=== PATIENT | male | born 1955 | race Caucasian/White ===

== ENCOUNTER 2021-05-27 18:57 | Inpatient (IN) | payer MEDICARE, MEDICAID ==
[~2021-05-27] VITALS: Ht 188 cm; Wt 102.0 kg
[2021-05-27 21:24] LABS: BASOPHILS % (AUTO) 0.4 % (0-1); EOSINOPHILS % (AUTO) 0.5 % (0-6); HEMATOCRIT 40.1 % (42.0-52.0); HEMOGLOBIN 13.4 g/dl (14.0-17.9); LYMPHOCYTES # (AUTO) 1.3 X10'3 (1.1-4.8); LYMPHOCYTES % (AUTO) 24.9 % (21-51); MEAN CORPUSCULAR HEMOGLOBIN 34.7 PG (27.0-31.0); MEAN CORPUSCULAR HGB CONC 33.5 g/dL (33.0-36.5); MEAN CORPUSCULAR VOLUME 103.4 FL (78-98); MEAN PLATELET VOLUME 8.8 FL (7.4-10.4); MONOCYTES # (AUTO) 0.7 X10'3 (0-0.9); MONOCYTES % (AUTO) 14.5 % (2-12); NEUTROPHILS % (AUTO) 59.7 % (42-75); PLATELET COUNT 131 X10'3 (140-440); RED BLOOD COUNT 3.88 X10'6 (4.70-6.10); RED CELL DISTRIBUTION WIDTH 13.4 % (11.5-14.5)
--- NOTE | 2021-05-27 21:36 | NUR ---
correction admin Evelyne Fulton called to let staff know she could contact her at [phone] or [phone]
[2021-05-27 21:47] LABS: ALANINE AMINOTRANSFERASE 26 U/L (12-78); ALBUMIN/GLOBULIN RATIO 0.9 (1.1-1.5); ALKALINE PHOSPHATASE 113 IU/L (46-116); ANION GAP 9 (8-16); ASPARTATE AMINO TRANSFERASE 15 U/L (10-37); BILIRUBIN,TOTAL 0.1 MG/DL (0.1-1.0); BLOOD UREA NITROGEN 22 MG/DL (7-18); BUN/CREATININE RATIO 20.4 (5.4-32.0); CHLORIDE 104 MMOL/L (99-107); CREATININE 1.08 MG/DL (0.60-1.10); GLUCOSE 274 MG/DL (70-104); POTASSIUM 4.3 MMOL/L (3.5-5.1); SODIUM 139 MMOL/L (135-145); TOTAL CARBON DIOXIDE 26.2 MMOL/L (24-32); TOTAL PROTEIN 6.3 G/DL (6.4-8.2); eGFR 69 ML/MIN
[2021-05-27] MEDS ORDERED: normal saline 1000ML IV soln IV ONE (22:20)
[2021-05-27 23:07] LABS: BASOPHILS % (AUTO) 0.3 % (0-1); EOSINOPHILS % (AUTO) 0.8 % (0-6); HEMATOCRIT 40.7 % (42.0-52.0); HEMOGLOBIN 13.6 g/dl (14.0-17.9); LYMPHOCYTES # (AUTO) 1.4 X10'3 (1.1-4.8); LYMPHOCYTES % (AUTO) 30.5 % (21-51); MEAN CORPUSCULAR HEMOGLOBIN 34.6 PG (27.0-31.0); MEAN CORPUSCULAR HGB CONC 33.4 g/dL (33.0-36.5); MEAN CORPUSCULAR VOLUME 103.6 FL (78-98); MEAN PLATELET VOLUME 8.7 FL (7.4-10.4); MONOCYTES # (AUTO) 0.6 X10'3 (0-0.9); MONOCYTES % (AUTO) 14.1 % (2-12); NEUTROPHILS # (AUTO) 2.5 X10'3 (1.8-7.7); NEUTROPHILS % (AUTO) 54.3 % (42-75); PLATELET COUNT 131 X10'3 (140-440); RED BLOOD COUNT 3.93 X10'6 (4.70-6.10); RED CELL DISTRIBUTION WIDTH 13.7 % (11.5-14.5); WHITE BLOOD COUNT 4.6 X10'3 (4.5-11.0)
[2021-05-28] MEDS: MESSAGE TO NURSING PO SCH
[2021-05-28 00:02] LABS: UA COLLECTION TYPE STRAIGHT CATH
[2021-05-28 00:03] LABS: COLOR,URINE YELLOW (Yellow)
[2021-05-28 00:04] LABS: CLARITY,URINE SLIGHTLY CLOUDY (Clear); GLUCOSE, URINE >=1000 mg/dl (Neg); KETONES,URINE TRACE mg/dl (Neg); LEUKOCYTE ESTERASE ,URINE NEGATIVE (Neg); NITRITES, URINE NEGATIVE (Neg); OCCULT BLOOD,URINE TRACE-LYSED (Neg); PROTEIN,URINE TRACE mg/dl (Neg); UROBILINOGEN,URINE 0.2 E.U/dL (0.2-1.0)
[2021-05-28 00:05] LABS: AMORPHOUS URATES 1+; BACTERIA,URINE FEW /HPF (Neg); COARSE GRANULAR CAST 0-3 /LPF (NEGATIVE); HYALINE CASTS 0-3 /LPF (NEGATIVE); RBC,URINE 0-2 /HPF (0-2); SQUAMOUS EPITHELIAL CELL,UR FEW /LPF (FEW); WBC,URINE NONE SEEN /HPF (0-4)
[2021-05-28] MEDS ORDERED: iohexol 350MG/ML 100ml bottle IV ONE (00:51)
[2021-05-28] MEDS ORDERED: magnesium 4gm in 100ml NS 100 ML IV PRN (01:30)
[2021-05-28] MEDS ORDERED: potassium Cl 20 mEq SR tablet PO PRN ×2 (01:30)
[2021-05-28] MEDS ORDERED: potassium Cl 40MEQ/1/2NS 520ml 520 ML IV PRN ×2 (01:30)
[2021-05-28] MEDS ORDERED: magnesium hydroxide 30ml (MOM) UD suspension PO PRN (01:30)
[2021-05-28] MEDS ORDERED: magnesium 2GM in 50ml NS 50 ML IV PRN (01:30)
[2021-05-28] MEDS ORDERED: acetaminophen 325mg tablet PO PRN (01:30)
[2021-05-28] MEDS ORDERED: mag hydrox/Alum hydrox/simeth 30ml oral suspension PO PRN (01:30)
[2021-05-28] MEDS ORDERED: magnesium Cl slow-release 64mg tablet PO PRN (01:30)
[2021-05-28] MEDS ORDERED: HYDROcodone/acetaminophen 5mg/325mg tablet PO PRN (01:30)
[2021-05-28] MEDS ORDERED: morphine 2 MG/ML inj. syringe IV PRN (01:30)
[2021-05-28] MEDS ORDERED: ondansetron/PF 4mg/2ml inj IV PRN (01:30)
--- NOTE | 2021-05-28 01:45 | NUR ---
patient is very poor historian, called [facility] with number provided in noted and there was no answer. Pharmacy will call again in the morning to hopefully get home meds list.
[2021-05-28] MEDS: normal saline 1000ml 1,000 ML IV SCH ×2 (02:00→19:00)
[2021-05-28] MEDS ORDERED: dextrose 50%-water 50ml dispensing syringe IV PRN ×2 (02:20)
[2021-05-28] MEDS ORDERED: glucagon, human recombinant 1mg kit SUBCUT PRN (02:20)
[2021-05-28] MEDS ORDERED: MESSAGE TO PHARMACY PO ONE (02:20)
[2021-05-28] MEDS ORDERED: dextrose ORAL solution 15 GM/59 ML bottle PO PRN ×2 (02:20)
[2021-05-28 02:57] LABS: HEMOGLOBIN A1C 7.3 % (4.5-6.2)
--- NOTE | 2021-05-28 07:49 | NUR ---
PAGER ID: [phone] MESSAGE: [phone] Ronnie canas admit to floor NPO? Is there a reason? he is hungry [phone]
[2021-05-28 07:50] VITALS: BP 124/81
[2021-05-28] MEDS: K and/or MAG REPLACEMENT MC SCH ×2 (08:00→20:00)
[2021-05-28] MEDS: ciprofloxacin lact 400MG/200ML 200 ML IV SCH ×2 (08:00→23:06)
[2021-05-28] MEDS ORDERED: SITA100T15 PO (08:10)
[2021-05-28] MEDS ORDERED: METF-950 PO (08:10)
[2021-05-28] MEDS ORDERED: LEVE10006 PO (08:10)
[2021-05-28] MEDS ORDERED: [UNRECOGNIZED DRUG - CODE] PO (08:10)
[2021-05-28] MEDS ORDERED: PHEN100C12 PO (08:10)
[2021-05-28] MEDS ORDERED: METO-395 PO (08:10)
[2021-05-28] MEDS ORDERED: GABA300C PO (08:18)
[2021-05-28] MEDS ORDERED: EPIN0.3A3 IJ (08:20)
[2021-05-28] MEDS ORDERED: CHOL100017 PO (08:20)
[2021-05-28 10:00] VITALS: BP 139/90
[2021-05-28] MEDS: metroNIDAZOLE-Flagyl 500mg/NS 100 ML IV SCH ×2 (10:39→19:32)
[2021-05-28] MEDS: docusate sod 100mg capsule PO SCH ×2 (10:40→21:36)
[2021-05-28] MEDS: heparin, porcine 5000 units/ml vial SQ SCH ×2 (10:40→19:31)
[2021-05-28] MEDS: dexamethasone 4mg/ml inj IV SCH ×2 (10:40→19:32)
[2021-05-28] MEDS: insulin Lispro (HumaLOG) vial - multi-dose SQ SCH ×2 (13:49→19:39)
[2021-05-28 14:00] VITALS: BP 130/79
[2021-05-28 18:00] VITALS: BP 135/94
--- NOTE | 2021-05-28 18:50 | NUR ---
Dr Osbaldo adhikari, patient had seizure while up in chair. Returned to bed by nursing. Home meds not ordered, possibly secondary to anticipated discharge that was postponed.
[2021-05-28] MEDS ORDERED: temazepam 15mg capsule PO PRN (21:00)
[2021-05-28] MEDS: insulin glargine (Lantus) pen - multi-dose SQ SCH (21:31)
[2021-05-28] MEDS: gabapentin 300mg capsule PO SCH (21:36)
[2021-05-28] MEDS: phenytoin sod ER 100mg capsule PO SCH (21:36)
[2021-05-28] MEDS: levetiracetam 250mg tablet PO SCH (21:36)
[2021-05-28 22:00] VITALS: BP 122/86
[2021-05-29] MEDS: MESSAGE TO NURSING PO SCH
[2021-05-29 02:00] VITALS: BP 115/71
[2021-05-29] MEDS: metroNIDAZOLE-Flagyl 500mg/NS 100 ML IV SCH ×4 (03:35→23:53)
[2021-05-29] MEDS: normal saline 1000ml 1,000 ML IV SCH ×2 (06:06→16:57)
--- NOTE | 2021-05-29 06:38 | NUR ---
Patient in room ORTHO 4008. I have received report from SONY Belcher and had the opportunity to ask questions and assume patient care.
[2021-05-29 06:53] VITALS: BP 116/67
[2021-05-29] MEDS: metoprolol succinate 25mg (24-HOUR) SR. Tablet PO SCH (07:15)
[2021-05-29] MEDS: cholecalciferol (vitamin D3) 1,000 unit (25mcg) tablet PO SCH (07:16)
[2021-05-29] MEDS: dexamethasone 4mg/ml inj IV SCH ×2 (07:16→20:16)
[2021-05-29] MEDS: levetiracetam 250mg tablet PO SCH ×2 (07:16→20:15)
[2021-05-29] MEDS: heparin, porcine 5000 units/ml vial SQ SCH ×2 (07:17→20:16)
[2021-05-29] MEDS: gabapentin 300mg capsule PO SCH ×2 (07:17→20:15)
[2021-05-29] MEDS: docusate sod 100mg capsule PO SCH ×3 (07:17→22:41)
[2021-05-29] MEDS ORDERED: docusate sod 100mg capsule PO SCH (08:00)
[2021-05-29] MEDS: K and/or MAG REPLACEMENT MC SCH ×2 (08:00→20:00)
[2021-05-29 08:38] LABS: BASOPHILS % (AUTO) 0.3 % (0-1); EOSINOPHILS % (AUTO) 0 % (0-6); HEMATOCRIT 38.5 % (42.0-52.0); HEMOGLOBIN 13.2 g/dl (14.0-17.9); LYMPHOCYTES # (AUTO) 0.6 X10'3 (1.1-4.8); MEAN CORPUSCULAR HEMOGLOBIN 34.8 PG (27.0-31.0); MEAN CORPUSCULAR HGB CONC 34.2 g/dL (33.0-36.5); MEAN CORPUSCULAR VOLUME 101.7 FL (78-98); MEAN PLATELET VOLUME 8.9 FL (7.4-10.4); MONOCYTES # (AUTO) 0.4 X10'3 (0-0.9); NEUTROPHILS # (AUTO) 2.6 X10'3 (1.8-7.7); NEUTROPHILS % (AUTO) 71.7 % (42-75); PLATELET COUNT 122 X10'3 (140-440); RED BLOOD COUNT 3.78 X10'6 (4.70-6.10); RED CELL DISTRIBUTION WIDTH 13.2 % (11.5-14.5); WHITE BLOOD COUNT 3.6 X10'3 (4.5-11.0)
[2021-05-29 08:53] LABS: ALANINE AMINOTRANSFERASE 46 U/L (12-78); ALBUMIN 2.8 G/DL (3.4-5.0); ALBUMIN/GLOBULIN RATIO 0.8 (1.1-1.5); ALKALINE PHOSPHATASE 105 IU/L (46-116); ANION GAP 11 (8-16); ASPARTATE AMINO TRANSFERASE 37 U/L (10-37); BILIRUBIN,TOTAL 0.3 MG/DL (0.1-1.0); BLOOD UREA NITROGEN 11 MG/DL (7-18); BUN/CREATININE RATIO 14.5 (5.4-32.0); CALCIUM 7.7 MG/DL (8.5-10.1); CHLORIDE 99 MMOL/L (99-107); CREATININE 0.76 MG/DL (0.60-1.10); GLUCOSE 184 MG/DL (70-104); MAGNESIUM 1.8 MG/DL (1.5-2.4); POTASSIUM 3.6 MMOL/L (3.5-5.1); SODIUM 138 MMOL/L (135-145); TOTAL CARBON DIOXIDE 27.6 MMOL/L (24-32); TOTAL PROTEIN 6.2 G/DL (6.4-8.2); eGFR > 90 ML/MIN
[2021-05-29] MEDS: ciprofloxacin lact 400MG/200ML 200 ML IV SCH ×2 (09:04→20:16)
[2021-05-29] MEDS: insulin Lispro (HumaLOG) vial - multi-dose SQ SCH ×3 (09:07→19:30)
[2021-05-29 10:00] VITALS: BP 100/67
[2021-05-29] MEDS: acetaminophen 325mg tablet PO PRN ×2 (10:17→22:45)
--- NOTE | 2021-05-29 11:16 | NUR ---
DM Consult: Pt A1C 7.3 hx T2DM admit DX COVID-19 w/ ALOC and hx developmental delay per EMR. Not appropriate for DM ed at this time. Addendum: 05/29/21 at [address] Amended: Links added.
--- NOTE | 2021-05-29 12:23 | NUR ---
Per patient he uses wheelchair when asked how he normally gets around at home and if he ambulates. Spoke to Evelyne who is patient's caregiver who states patient normally able to ambulate from bedroom to bathroom and back with just holding hands. Evelyne states she cannot take patient back to home if he is unable to ambulate as he is normally ambulatory and she does not have room for non ambulating patient. Per ambulation notes patient was able to ambulate with hand held assist 120ft. Attempted to ambulate patient however patient states he is too weak. Patient very weak and unable to sit up straight in bed unassisted. Patient was transferred from bed to chair and back to bed with x2 mod assist. Patient temp also 100.3. Cool wash cloth placed on patient's forehead. Dr Roblero notified. Evelyne also notified patient weak.
[2021-05-29 14:00] VITALS: BP 116/73
[2021-05-29 18:00] VITALS: BP 109/74
--- NOTE | 2021-05-29 18:24 | NUR ---
Problems reprioritized. Patient report given, questions answered & plan of care reviewed with SONY Belcher.
[2021-05-29] MEDS: phenytoin sod ER 100mg capsule PO SCH (20:15)
[2021-05-29 22:00] VITALS: BP 127/80
[2021-05-29] MEDS: insulin glargine (Lantus) pen - multi-dose SQ SCH (22:39)
[2021-05-30] VITALS (7 sets, daily range): BP systolic 108–153; BP diastolic 71–85
[2021-05-30] MEDS: MESSAGE TO NURSING PO SCH
--- NOTE | 2021-05-30 07:00 | NUR ---
Patient in room ORTHO 4008. I have received report from Simi RN and had the opportunity to ask questions and assume patient care.
[2021-05-30] MEDS: dexamethasone 4mg/ml inj IV SCH ×2 (07:39→19:40)
[2021-05-30] MEDS: metroNIDAZOLE-Flagyl 500mg/NS 100 ML IV SCH ×3 (07:41→23:56)
[2021-05-30] MEDS: levetiracetam 250mg tablet PO SCH ×2 (07:42→19:40)
[2021-05-30] MEDS: cholecalciferol (vitamin D3) 1,000 unit (25mcg) tablet PO SCH (07:42)
[2021-05-30] MEDS: heparin, porcine 5000 units/ml vial SQ SCH ×2 (07:42→19:41)
[2021-05-30] MEDS: gabapentin 300mg capsule PO SCH ×2 (07:42→19:40)
[2021-05-30] MEDS: metoprolol succinate 25mg (24-HOUR) SR. Tablet PO SCH (07:43)
[2021-05-30] MEDS: K and/or MAG REPLACEMENT MC SCH ×2 (08:00→19:52)
[2021-05-30 08:20] LABS: BASOPHILS % (AUTO) 0.4 % (0-1); EOSINOPHILS % (AUTO) 0 % (0-6); HEMATOCRIT 41.1 % (42.0-52.0); HEMOGLOBIN 13.6 g/dl (14.0-17.9); LYMPHOCYTES # (AUTO) 0.9 X10'3 (1.1-4.8); LYMPHOCYTES % (AUTO) 31.7 % (21-51); MEAN CORPUSCULAR HEMOGLOBIN 34.2 PG (27.0-31.0); MEAN CORPUSCULAR HGB CONC 33.2 g/dL (33.0-36.5); MEAN CORPUSCULAR VOLUME 102.9 FL (78-98); MEAN PLATELET VOLUME 8.6 FL (7.4-10.4); MONOCYTES # (AUTO) 0.4 X10'3 (0-0.9); MONOCYTES % (AUTO) 13.1 % (2-12); NEUTROPHILS # (AUTO) 1.5 X10'3 (1.8-7.7); NEUTROPHILS % (AUTO) 54.8 % (42-75); PLATELET COUNT 105 X10'3 (140-440); RED BLOOD COUNT 3.99 X10'6 (4.70-6.10); RED CELL DISTRIBUTION WIDTH 13.3 % (11.5-14.5); WHITE BLOOD COUNT 2.7 X10'3 (4.5-11.0)
[2021-05-30 08:40] LABS: ALANINE AMINOTRANSFERASE 59 U/L (12-78); ALBUMIN 2.8 G/DL (3.4-5.0); ALBUMIN/GLOBULIN RATIO 0.8 (1.1-1.5); ALKALINE PHOSPHATASE 99 IU/L (46-116); ANION GAP 8 (8-16); ASPARTATE AMINO TRANSFERASE 41 U/L (10-37); BILIRUBIN,TOTAL 0.2 MG/DL (0.1-1.0); BLOOD UREA NITROGEN 11 MG/DL (7-18); BUN/CREATININE RATIO 13.1 (5.4-32.0); CALCIUM 7.8 MG/DL (8.5-10.1); CHLORIDE 102 MMOL/L (99-107); CREATININE 0.84 MG/DL (0.60-1.10); GLUCOSE 184 MG/DL (70-104); MAGNESIUM 1.9 MG/DL (1.5-2.4); POTASSIUM 3.6 MMOL/L (3.5-5.1); SODIUM 139 MMOL/L (135-145); TOTAL CARBON DIOXIDE 28.6 MMOL/L (24-32); TOTAL PROTEIN 6.2 G/DL (6.4-8.2); eGFR > 90 ML/MIN
[2021-05-30] MEDS: ciprofloxacin lact 400MG/200ML 200 ML IV SCH ×2 (09:14→19:39)
[2021-05-30] MEDS: insulin Lispro (HumaLOG) vial - multi-dose SQ SCH ×4 (09:18→21:22)
[2021-05-30] MEDS: normal saline 1000ml 1,000 ML IV SCH ×3 (10:42→20:00)
[2021-05-30 11:18] LABS: NEUTROPHILS % (MANUAL) 60 % (42-75); TOTAL CELLS COUNTED 100
[2021-05-30 11:19] LABS: LARGE PLATELETS FEW; LYMPHOCYTES % (MANUAL) 26 % (21-51); PLATELET ESTIMATE DECREASED; SMUDGE CELLS 1+
--- NOTE | 2021-05-30 13:58 | NUR ---
Pt just finished eating lunch. Insulin given per sliding scale. Will continue to monitor.
[2021-05-30] MEDS ORDERED: magnesium 2GM in 50ml NS 50 ML IV PRN (14:15)
[2021-05-30] MEDS ORDERED: potassium Cl 20 mEq SR tablet PO PRN ×2 (14:15)
[2021-05-30] MEDS ORDERED: potassium Cl 40MEQ/1/2NS 520ml 520 ML IV PRN ×2 (14:15)
[2021-05-30] MEDS ORDERED: magnesium 4gm in 100ml NS 100 ML IV PRN (14:15)
[2021-05-30] MEDS ORDERED: magnesium Cl slow-release 64mg tablet PO PRN (14:15)
[2021-05-30] MEDS ORDERED: Dextrose 10%-water IV solution 1,000 ML IV PRN (14:15)
--- NOTE | 2021-05-30 14:46 | NUR ---
MESSAGE SENT TO CASE MANAGEMENT; PATIENT VERY UNSTEADY, AMBULATED 10 FEET AND TEETERED FORWARD, WOULD HAVE FALLEN FACE FIRST IF 2 STAFF MEMBERS NOT PRESENT, ONE FOLLOWING WITH WHEELCHAIR. WILL CONTINUE TO MONITOR.
[2021-05-30] MEDS ORDERED: ZINC IV SCH ×3 (17:00)
[2021-05-30] MEDS ORDERED: LYTES IV SCH ×3 (17:00)
[2021-05-30] MEDS ORDERED: COPPER IV SCH ×3 (17:00)
[2021-05-30] MEDS ORDERED: SELENIUM IV SCH ×3 (17:00)
[2021-05-30] MEDS ORDERED: MANGANESE IV SCH ×3 (17:00)
[2021-05-30] MEDS ORDERED: DEX IV SCH ×3 (17:00)
[2021-05-30] MEDS ORDERED: CALCIUM IV SCH ×3 (17:00)
[2021-05-30] MEDS ORDERED: [UNRECOGNIZED DRUG - OTHER] IV SCH ×3 (17:00)
--- NOTE | 2021-05-30 18:31 | NUR ---
Problems reprioritized. Patient report given, questions answered & plan of care reviewed with Janey CARDOZA.
--- NOTE | 2021-05-30 18:45 | NUR ---
Notified Dr. Garcia of pt fall, no new orders received. no injuries reported by pt ot pts nurse.
[2021-05-30] MEDS: phenytoin sod ER 100mg capsule PO SCH (19:40)
[2021-05-30] MEDS: docusate sod 100mg capsule PO SCH (19:53)
[2021-05-30] MEDS ORDERED: K and/or MAG REPLACEMENT MC SCH (20:00)
[2021-05-30] MEDS: insulin glargine (Lantus) pen - multi-dose SQ SCH (21:20)
[2021-05-31 02:00] VITALS: BP 93/63
[2021-05-31 06:00] VITALS: BP 97/70
--- NOTE | 2021-05-31 06:28 | NUR ---
Patient in room ORTHO 4008. I have received report from SONY rocha and had the opportunity to ask questions and assume patient care.
--- NOTE | 2021-05-31 06:35 | NUR ---
Problems reprioritized. Patient report given, questions answered & plan of care reviewed with SONY Lau.
[2021-05-31] MEDS: cholecalciferol (vitamin D3) 1,000 unit (25mcg) tablet PO SCH (07:50)
[2021-05-31] MEDS: levetiracetam 250mg tablet PO SCH ×2 (07:51→21:14)
[2021-05-31] MEDS: gabapentin 300mg capsule PO SCH ×2 (07:51→21:15)
[2021-05-31] MEDS: metroNIDAZOLE-Flagyl 500mg/NS 100 ML IV SCH ×2 (07:52→16:39)
[2021-05-31] MEDS: dexamethasone 4mg/ml inj IV SCH ×3 (07:53→23:11)
[2021-05-31] MEDS: heparin, porcine 5000 units/ml vial SQ SCH ×2 (07:54→22:10)
[2021-05-31] MEDS: docusate sod 100mg capsule PO SCH ×2 (07:54→21:14)
[2021-05-31] MEDS: metoprolol succinate 25mg (24-HOUR) SR. Tablet PO SCH (07:56)
[2021-05-31] MEDS: K and/or MAG REPLACEMENT MC SCH ×2 (08:00→20:00)
[2021-05-31 09:00] LABS: BASOPHILS % (AUTO) 0.2 % (0-1); EOSINOPHILS % (AUTO) 0.1 % (0-6); HEMATOCRIT 38.8 % (42.0-52.0); HEMOGLOBIN 12.9 g/dl (14.0-17.9); LYMPHOCYTES % (AUTO) 37.8 % (21-51); MEAN CORPUSCULAR HEMOGLOBIN 34.5 PG (27.0-31.0); MEAN CORPUSCULAR HGB CONC 33.4 g/dL (33.0-36.5); MEAN CORPUSCULAR VOLUME 103.3 FL (78-98); MEAN PLATELET VOLUME 9.2 FL (7.4-10.4); MONOCYTES # (AUTO) 0.3 X10'3 (0-0.9); NEUTROPHILS # (AUTO) 1.4 X10'3 (1.8-7.7); NEUTROPHILS % (AUTO) 50.9 % (42-75); PLATELET COUNT 99 X10'3 (140-440); RED BLOOD COUNT 3.75 X10'6 (4.70-6.10); RED CELL DISTRIBUTION WIDTH 13.3 % (11.5-14.5); WHITE BLOOD COUNT 2.7 X10'3 (4.5-11.0)
[2021-05-31 09:14] LABS: ALANINE AMINOTRANSFERASE 48 U/L (12-78); ALBUMIN 2.5 G/DL (3.4-5.0); ALBUMIN/GLOBULIN RATIO 0.8 (1.1-1.5); ALKALINE PHOSPHATASE 87 IU/L (46-116); ANION GAP 8 (8-16); ASPARTATE AMINO TRANSFERASE 33 U/L (10-37); BILIRUBIN,TOTAL 0.2 MG/DL (0.1-1.0); BLOOD UREA NITROGEN 13 MG/DL (7-18); BUN/CREATININE RATIO 15.9 (5.4-32.0); CALCIUM 7.9 MG/DL (8.5-10.1); CHLORIDE 105 MMOL/L (99-107); CREATININE 0.82 MG/DL (0.60-1.10); GLUCOSE 160 MG/DL (70-104); MAGNESIUM 1.8 MG/DL (1.5-2.4); POTASSIUM 3.7 MMOL/L (3.5-5.1); SODIUM 141 MMOL/L (135-145); TOTAL CARBON DIOXIDE 28.4 MMOL/L (24-32); TOTAL PROTEIN 5.7 G/DL (6.4-8.2); eGFR > 90 ML/MIN
[2021-05-31] MEDS: ciprofloxacin lact 400MG/200ML 200 ML IV SCH ×2 (09:36→23:11)
[2021-05-31 10:00] VITALS: BP 106/66
[2021-05-31 10:02] LABS: TOTAL CELLS COUNTED 100
[2021-05-31 10:03] LABS: BURR CELLS 1+; PLATELET ESTIMATE DECREASED; SMUDGE CELLS 1+
[2021-05-31] MEDS: insulin Lispro (HumaLOG) vial - multi-dose SQ SCH ×3 (10:13→19:27)
[2021-05-31 14:00] VITALS: BP 93/57
[2021-05-31 18:00] VITALS: BP 107/71
--- NOTE | 2021-05-31 18:32 | NUR ---
Problems reprioritized. Patient report given, OSNY rocha questions answered & plan of care reviewed with .
[2021-05-31] MEDS: phenytoin sod ER 100mg capsule PO SCH (21:15)
[2021-05-31] MEDS: insulin glargine (Lantus) pen - multi-dose SQ SCH (21:21)
--- NOTE | 2021-05-31 21:54 | NUR ---
Dr. Garcia has been notified of pt. Platelets 99.Pt. received his Heparin tonight per .We will continue with pt. care.
[2021-05-31 22:00] VITALS: BP 129/80
[2021-06-01] MEDS: metroNIDAZOLE-Flagyl 500mg/NS 100 ML IV SCH ×2 (00:31→07:35)
[2021-06-01 02:00] VITALS: BP 110/75
[2021-06-01 06:00] VITALS: BP 118/73
--- NOTE | 2021-06-01 06:19 | NUR ---
Problems reprioritized. Patient report given, questions answered & plan of care reviewed with to SONY Lau.
--- NOTE | 2021-06-01 06:19 | NUR ---
Patient in room ORTH[facility] 4008. I have received report from Lauryn and Kacy Villegas RN and had the opportunity to ask questions and assume patient care.
[2021-06-01] MEDS: normal saline 1000ml 1,000 ML IV SCH (06:33)
[2021-06-01] MEDS: gabapentin 300mg capsule PO SCH (07:33)
[2021-06-01] MEDS: dexamethasone 4mg/ml inj IV SCH (07:34)
[2021-06-01] MEDS: levetiracetam 250mg tablet PO SCH (07:34)
[2021-06-01] MEDS: heparin, porcine 5000 units/ml vial SQ SCH (07:35)
[2021-06-01] MEDS: ciprofloxacin lact 400MG/200ML 200 ML IV SCH (07:35)
[2021-06-01] MEDS: cholecalciferol (vitamin D3) 1,000 unit (25mcg) tablet PO SCH (07:35)
[2021-06-01] MEDS: docusate sod 100mg capsule PO SCH (07:35)
[2021-06-01 07:42] LABS: BASOPHILS % (AUTO) 0.1 % (0-1); EOSINOPHILS % (AUTO) 0 % (0-6); HEMATOCRIT 38.8 % (42.0-52.0); HEMOGLOBIN 13.1 g/dl (14.0-17.9); LYMPHOCYTES # (AUTO) 0.9 X10'3 (1.1-4.8); LYMPHOCYTES % (AUTO) 26.5 % (21-51); MEAN CORPUSCULAR HEMOGLOBIN 34.7 PG (27.0-31.0); MEAN CORPUSCULAR HGB CONC 33.8 g/dL (33.0-36.5); MEAN CORPUSCULAR VOLUME 102.7 FL (78-98); MEAN PLATELET VOLUME 8.7 FL (7.4-10.4); MONOCYTES # (AUTO) 0.3 X10'3 (0-0.9); MONOCYTES % (AUTO) 10.4 % (2-12); PLATELET COUNT 113 X10'3 (140-440); RED BLOOD COUNT 3.78 X10'6 (4.70-6.10); RED CELL DISTRIBUTION WIDTH 13.3 % (11.5-14.5); WHITE BLOOD COUNT 3.2 X10'3 (4.5-11.0)
[2021-06-01 07:58] LABS: ALANINE AMINOTRANSFERASE 57 U/L (12-78); ALBUMIN 2.5 G/DL (3.4-5.0); ALBUMIN/GLOBULIN RATIO 0.7 (1.1-1.5); ALKALINE PHOSPHATASE 91 IU/L (46-116); ANION GAP 5 (8-16); ASPARTATE AMINO TRANSFERASE 48 U/L (10-37); BILIRUBIN,TOTAL 0.2 MG/DL (0.1-1.0); BLOOD UREA NITROGEN 13 MG/DL (7-18); BUN/CREATININE RATIO 13.4 (5.4-32.0); CALCIUM 7.7 MG/DL (8.5-10.1); CHLORIDE 104 MMOL/L (99-107); CREATININE 0.97 MG/DL (0.60-1.10); GLUCOSE 200 MG/DL (70-104); MAGNESIUM 1.9 MG/DL (1.5-2.4); POTASSIUM 4.3 MMOL/L (3.5-5.1); SODIUM 139 MMOL/L (135-145); TOTAL CARBON DIOXIDE 29.8 MMOL/L (24-32); TOTAL PROTEIN 5.9 G/DL (6.4-8.2); eGFR 78 ML/MIN
[2021-06-01] MEDS ORDERED: metoprolol succinate 25mg (24-HOUR) SR. Tablet PO SCH (08:00)
[2021-06-01] MEDS: K and/or MAG REPLACEMENT MC SCH (08:00)
[2021-06-01] MEDS: insulin Lispro (HumaLOG) vial - multi-dose SQ SCH (08:53)
--- NOTE | 2021-06-01 09:48 | NUR ---
Initial: Pt admit for COVID-19. Currently on a CHO controlled diet with improving PO intake, initially averaging 25% PO intake however up to 75-100% PO intake since dinner 05/30. LBM 05/31. No documented edema or wounds. No nutrition intervention implemented at this time. Will continue to follow and make recommendations as appropriate. Recommendations: 1) Continue CHO controlled diet 2) Monitor need for additional protein for satiety pending additional trends in PO intake; consider ONS IF PO intake declines 3) Routine bowel care 4) Scaled weight this admit; weekly scaled weights thereafter Addendum: 06/01/21 at [address] Amended: Links added.
[2021-06-01 10:00] VITALS: BP 103/64
--- NOTE | 2021-06-01 10:20 | NUR ---
PAGER ID: [phone] MESSAGE: Charleen [phone] - re [phone] Ronnie. PT said they D/C'd him on 05/28 and he is ok to go home
== END 2021-06-01 14:50 | disposition home or self-care (01) | DRG 179 ==
LOC: ER 18:58 → ED HOLD 05-28 01:32 → ORTHO 4S 05-28 07:30 → OBSVTOIN 05-29 16:00
PROVIDERS: ADMIT Internal Medicine; ATTEND Internal Medicine
PROC: B4201ZZ Computerized Tomography (CT Scan) of Abdominal Aorta using Low Osmolar Contrast (ICD-10-PCS; principal; 2021-05-28)
PROC: B4281ZZ Computerized Tomography (CT Scan) of Bilateral Renal Arteries using Low Osmolar Contrast (ICD-10-PCS; 2021-05-28)
PROC: B42H1ZZ Computerized Tomography (CT Scan) of Bilateral Lower Extremity Arteries using Low Osmolar Contrast (ICD-10-PCS; 2021-05-28)
PROC: B42C1ZZ Computerized Tomography (CT Scan) of Pelvic Arteries using Low Osmolar Contrast (ICD-10-PCS; 2021-05-28)
PROC: B4241ZZ Computerized Tomography (CT Scan) of Superior Mesenteric Artery using Low Osmolar Contrast (ICD-10-PCS; 2021-05-28)
PROC: B4211ZZ Computerized Tomography (CT Scan) of Celiac Artery using Low Osmolar Contrast (ICD-10-PCS; 2021-05-28)
DX: U07.1 COVID-19 (principal); M79.10 Myalgia, unspecified site; R53.1 Weakness; E11.9 Type 2 diabetes mellitus without complications; I10 Essential (primary) hypertension; G40.909 Epilepsy, unspecified, not intractable, without status epilepticus; R26.2 Difficulty in walking, not elsewhere classified; R10.9 Unspecified abdominal pain; N40.0 Benign prostatic hyperplasia without lower urinary tract symptoms; M89.8X8 Other specified disorders of bone, other site
CPT/HCPCS: 36415; 70450; 71045; 74174; 80053; 81001; 81003; 82948; 83036; 83605; 83735; 83880; 84145; 84153; 84484; 85007; 85025; 87040; 87081; 87635; 93005; 97116; 97161; 97530; 99285; C9803; G0378; J0744; J1100; J1644; J1815; J3490; J7030; Q9967

== ENCOUNTER 2021-09-21 08:35 | Outpatient (CLI) | payer MEDICARE, MEDICAID ==
[~2021-09-21 08:35] MED LIST: CHOL100017 PO; EPIN0.3A3 IJ; GABA300C PO; LEVE10006 PO; METF-1203 PO; METO-395 PO; PHEN100C12 PO; SITA100T15 PO; [UNRECOGNIZED DRUG - CODE] PO
== END 2021-09-21 23:59 | disposition home or self-care (01) ==
LOC: RAD 08:35
PROVIDERS: ATTEND Psychiatry & Neurology Neurology
DX: R94.01 Abnormal electroencephalogram [EEG] (principal); G40.309 Generalized idiopathic epilepsy and epileptic syndromes, not intractable, without status epilepticus
CPT/HCPCS: 95816

== ENCOUNTER 2022-06-22 16:25 | Emergency (ER) | payer MEDICARE, MEDICAID ==
[~2022-06-22] VITALS: Ht 170.2 cm; Wt 72.7 kg
[2022-06-22 17:40] LABS: BASOPHILS % (AUTO) 0.3 % (0-1); EOSINOPHILS # (AUTO) 0.1 X10'3 (0-0.9); EOSINOPHILS % (AUTO) 1.1 % (0-6); HEMOGLOBIN 14.6 g/dl (14.0-17.9); LYMPHOCYTES # (AUTO) 1.4 X10'3 (1.1-4.8); LYMPHOCYTES % (AUTO) 18.3 % (21-51); MEAN CORPUSCULAR HEMOGLOBIN 35.5 PG (27.0-31.0); MEAN CORPUSCULAR HGB CONC 34.6 g/dL (33.0-36.5); MEAN CORPUSCULAR VOLUME 102.4 FL (78-98); MEAN PLATELET VOLUME 8.3 FL (7.4-10.4); MONOCYTES # (AUTO) 0.7 X10'3 (0-0.9); MONOCYTES % (AUTO) 9.1 % (2-12); NEUTROPHILS # (AUTO) 5.4 X10'3 (1.8-7.7); NEUTROPHILS % (AUTO) 71.2 % (42-75); PLATELET COUNT 157 X10'3 (140-440); RED BLOOD COUNT 4.11 X10'6 (4.70-6.10); RED CELL DISTRIBUTION WIDTH 13.3 % (11.5-14.5); WHITE BLOOD COUNT 7.6 X10'3 (4.5-11.0)
[2022-06-22 18:03] LABS: ALANINE AMINOTRANSFERASE 29 U/L (12-78); ALBUMIN 3.4 G/DL (3.4-5.0); ALBUMIN/GLOBULIN RATIO 0.9 (1.1-1.5); ALKALINE PHOSPHATASE 185 IU/L (46-116); ANION GAP 9 (8-16); ASPARTATE AMINO TRANSFERASE 12 U/L (10-37); BILIRUBIN,TOTAL 0.2 MG/DL (0.1-1.0); BLOOD UREA NITROGEN 14 MG/DL (7-18); BUN/CREATININE RATIO 13.7 (5.4-32.0); CALCIUM 8.7 MG/DL (8.5-10.1); CHLORIDE 97 MMOL/L (99-107); CREATININE 1.02 MG/DL (0.60-1.10); GLUCOSE 271 MG/DL (70-104); MAGNESIUM 1.8 MG/DL (1.5-2.4); POTASSIUM 3.9 MMOL/L (3.5-5.1); SODIUM 133 MMOL/L (135-145); TOTAL CARBON DIOXIDE 27.4 MMOL/L (24-32); TOTAL PROTEIN 7.4 G/DL (6.4-8.2); eGFR 73 ML/MIN
[2022-06-22] MEDS ORDERED: LIDOcaine 2% 10ml TOPICAL JELLY (Urojet) MM ONE (19:30)
[2022-06-22 20:08] LABS: CLARITY,URINE CLEAR (Clear); COLOR,URINE YELLOW (Yellow); GLUCOSE, URINE >=1000 mg/dl (Neg); KETONES,URINE NEGATIVE (Neg); LEUKOCYTE ESTERASE ,URINE NEGATIVE (Neg); NITRITES, URINE NEGATIVE (Neg); OCCULT BLOOD,URINE NEGATIVE (Neg); PROTEIN,URINE NEGATIVE (Neg); UROBILINOGEN,URINE 0.2 E.U/dL (0.2-1.0)
[2022-06-22 20:09] LABS: UA COLLECTION TYPE STRAIGHT CATH
[2022-06-22 20:15] LABS: BACTERIA,URINE FEW /HPF (Neg); MUCUS STRANDS FEW /LPF (Neg); RBC,URINE 0-2 /HPF (0-2); SQUAMOUS EPITHELIAL CELL,UR NONE SEEN /LPF (FEW); WBC,URINE 0-4 /HPF (0-4)
[2022-06-22 20:37] VITALS: BP 125/87
[2022-06-22] MEDS ORDERED: diatr meglu/diatrizoate 30ml oral sol.-(3 dose) bottle ONE (20:47)
[2022-06-25] MEDS ORDERED: CYAN250010 PO (18:23)
[2022-06-25] MEDS ORDERED: SEMA0.25 SQ (18:27)
[2022-06-27] MEDS ORDERED: LEVO-65 PO (10:44)
== END 2022-06-22 22:07 | disposition home or self-care (01) ==
LOC: ER 16:26
DX: R50.9 Fever, unspecified (principal); R06.02 Shortness of breath; E11.9 Type 2 diabetes mellitus without complications; Z79.899 Other long term (current) drug therapy
CPT/HCPCS: 36415; 71045; 74176; 80053; 81001; 82948; 83605; 83735; 84145; 85025; 87040; 93005; 99285; C1758; Q9963

== ENCOUNTER 2022-12-23 19:59 | Emergency (ER) | payer MEDICARE, MEDICAID ==
[~2022-12-23] VITALS: Ht 165.1 cm; Wt 72.7 kg
[~2022-12-23 19:59] MED LIST changes: +CYAN250010 PO; -METF-1203 PO; +SEMA0.25 SQ; -SITA100T15 PO
[2022-12-23 20:13] VITALS: BP 112/75
--- NOTE | 2022-12-23 23:33 | NUR ---
provider administered enema
[2022-12-23] MEDS ORDERED: PSYL575P22 PO (23:46)
== END 2022-12-23 23:52 | disposition home or self-care (01) ==
LOC: ER 19:59
DX: K59.00 Constipation, unspecified (principal); E11.9 Type 2 diabetes mellitus without complications
CPT/HCPCS: 74018; 99284

== ENCOUNTER 2023-03-26 12:22 | Outpatient (CLI) | payer MEDICARE, MEDICAID ==
[~2023-03-26 12:22] MED LIST changes: +BARIUM SULFATE 340 ML SUSP.RECON***PROCEDURE AREA ONLY**DONT ENTER PO ONE; -EPIN0.3A3 IJ; +EPIN0.3A3 IM; -PHEN100C12 PO; +POLY119P2 PO; +PSYL0.4C2 PO; +SENN-263 PO; -[UNRECOGNIZED DRUG - CODE] PO
== END 2023-03-26 23:59 | disposition home or self-care (01) ==
LOC: RAD 12:22
PROVIDERS: ATTEND Student in an Organized Health Care Education/Training Program
DX: R13.12 Dysphagia, oropharyngeal phase (principal)
CPT/HCPCS: 74230